=== PATIENT | female | born 1950 | race Caucasian/White ===

== ENCOUNTER 2018-10-10 00:09 | Emergency (ER) | payer SELFPAY ==
[2018-10-10] MEDS ORDERED: D50W 25 GM/50 ML SYRINGE IV ONE (00:32)
[2018-10-10] MEDS ORDERED: NA CHLORIDE 0.9% 1,000 ML ONE (00:44)
[2018-10-10] MEDS ORDERED: ONDANSETRON 4 MG/2 ML VIAL ONE (00:44)
[2018-10-10 00:48] LABS: Absolute Monocytes 0.5 K/uL (0.1-1.3); Basophils % 0.5 % (0-1.3); Eosinophils % 0.2 % (0-4.4); Hematocrit 42.1 % (36.0-45.0); Lymphocytes % 9.3 % (15.3-44.8); MCH 38.5 pg (27.0-35.0); MCV 112.2 fL (80-100); Monocytes % 5.1 % (3.3-12.3); RBC Red Blood Cell Count 3.75 M/uL (3.86-4.86)
[2018-10-10 01:19] LABS: ALT/SGPT 56 U/L (12-78); AST/SGOT 79 U/L (15-37); Albumin 3.9 g/dL (3.4-5.0); Alkaline Phosphatase 80 U/L (45-117); BUN Blood Urea Nitrogen 13 mg/dL (7-18); Bilirubin Direct 0.2 mg/dL (0-0.2); Bilirubin Total 0.8 mg/dL (0.2-1.0); Glucose Level 56 mg/dL (74-106); Lipase 130 U/L (73-393); Potassium 4.1 mmol/L (3.5-5.1); Protein, Total 8.1 g/dL (6.4-8.2); Sodium Level 132 mmol/L (136-145); Troponin I < 0.02 ng/mL (0.0-0.045)
[2018-10-10 01:20] LABS: Bicarbonate 13 mmol/L (21-32)
[2018-10-10 02:36] LABS: Urine Blood 1+ (NEG); Urine Glucose TRACE (NEG); Urine Protein NEGATIVE (NEG); Urine Specific Gravity 1.015 (1.005-1.030); Urine pH 5.5 (5.0-7.0)
[2018-10-10 03:21] LABS: Albumin 3.3 g/dL (3.4-5.0); Bilirubin Total 0.7 mg/dL (0.2-1.0); Potassium 4.2 mmol/L (3.5-5.1); Protein, Total 6.9 g/dL (6.4-8.2)
--- NOTE | 2018-10-10 03:36 | EDPHYS ---
Physician Documentation [facility] Name: Lena Correa Age: 68 yrs Sex: Female : 1950 Arrival Date: 10/10/2018 Time: 00:10 Bed 6 Private MD: ED Physician Lc Hodges HPI: 10/10 00:17 This 68 yrs old Female presents to ER via Unassigned with complaints of ma2 nausea vomiting. 00:17 The patient presents to the emergency department with nausea, vomiting. Onset: The ma2 symptoms/episode began/occurred gradually. Onset: The symptoms/episode began/occurred 1 week(s) ago. Associated signs and symptoms: Pertinent negatives: abdominal pain, anorexia, constipation, diarrhea, dysuria, fever, flatulence, GI bleeding, hematuria, nausea. Severity of symptoms: At their worst the symptoms were moderate in the emergency department the symptoms are unchanged. The patient has not experienced similar symptoms in the past. Historical: - Allergies: 00:40 PENICILLINS; lp1 00:40 Erythromycin; lp1 - Home Meds: 00:40 None [Active]; lp1 - PMHx: 00:40 None; lp1 - PSHx: 00:40 D \T\ C; lp1 - Immunization history:: Adult Immunizations up to date. - Social history:: Patient/guardian denies using alcohol, street drugs, The patient lives with family, Smoking status: Patient/guardian denies using tobacco. - Family history:: not pertinent. - Ebola Screening: : No symptoms or risks identified at this time. ROS: 00:17 Constitutional: Negative for fever, chills, and weight loss. ma2 00:17 Abdomen/GI: Positive for nausea, vomiting, Negative for diarrhea, constipation, abdominal cramps, abdominal distension, rectal bleeding, flatulence, acute changes. 00:17 All other systems are negative. Exam: 00:17 Constitutional: This is a well developed, well nourished patient who is awake, alert, ma2 and in no acute distress. Head/Face: Normocephalic, atraumatic. Chest/axilla: Normal chest wall appearance and motion. Nontender with no deformity. No lesions are appreciated. Cardiovascular: Regular rate and rhythm with a normal S1 and S2. No gallops, murmurs, or rubs. Normal PMI, no JVD. No pulse deficits. Respiratory: Lungs have equal breath sounds bilaterally, clear to auscultation and percussion. No rales, rhonchi or wheezes noted. No increased work of breathing, no retractions or nasal flaring. Abdomen/GI: Soft, non-tender, with normal bowel sounds. No distension or tympany. No guarding or rebound. No evidence of tenderness throughout. MS/ Extremity: Pulses equal, no cyanosis. Neurovascular intact. Full, normal range of motion. Neuro: Awake and alert, GCS 15, oriented to person, place, time, and situation. Cranial nerves II-XII grossly intact. Motor strength 5/5 in all extremities. Sensory grossly intact. Cerebellar exam normal. Normal gait. Vital Signs: 00:00 BP 198 / 102; Pulse 86; Resp 18; Temp 99.1(O); Pulse Ox 100% on R/A; Weight 58.97 kg; lp1 Height 5 ft. 3 in. (160.02 cm); Pain 0/10; 00:20 BP 176 / 84; Pulse 90; Resp 22; Pulse Ox 97% on R/A; lp1 01:30 BP 172 / 82; Pulse 82; Resp 22; Pulse Ox 96% on R/A; bb 02:32 BP 166 / 80; Pulse 79; Resp 16 S; Pulse Ox 98% on R/A; bb 03:23 BP 154 / 77; Pulse 77; Resp 15 S; Pulse Ox 99% ; bb 00:00 Body Mass Index 23.03 (58.97 kg, 160.02 cm) lp1 MDM: 00:11 Patient medically screened. ma2 00:17 Differential diagnosis: gastritis, pancreatitis, viral gastroenteritis, gastroenteritis.ma2 03:33 Data reviewed: vital signs, nurses notes, lab test result(s). Counseling: I had a ma2 detailed discussion with the patient and/or guardian regarding: the historical points, exam findings, and any diagnostic results supporting the discharge/admit diagnosis, the presence of at least one elevated blood pressure reading (>120/80) during this emergency department visit, the need for outpatient follow up. Response to treatment: the patient's symptoms have resolved after treatment. ED course: patient had elevated anion gap, however all her symptoms resolved vs wnl and want to go home, she will return to the er if she has any new symptoms.. and will f/u with pcp in 1 day . 10/10 00:17 Order name: Basic Metabolic Panel; Complete Time: : ma2 10/10 00:17 Order name: CBC with Diff; Complete Time: ma2 10/10 00:17 Order name: Hepatic Function; Complete Time: : ma2 10/10 00:17 Order name: Lipase; Complete Time: : ma2 10/10 00:17 Order name: Troponin I; Complete Time: : ma2 10/10 00:17 Order name: IV Saline Lock; Complete Time: 00:46 ma2 10/10 00:17 Order name: Labs collected and sent; Complete Time: 00:46 ma2 10/10 00:17 Order name: Chest Single View XRAY sd2 10/10 01:44 Order name: CMP; Complete Time: 03:32 ma2 10/10 02:30 Order name: Urine Dipstick--Ancillary (enter results); Complete Time: 02:46 [facility] 10/10 00:17 Order name: Urine Dipstick-Ancillary (obtain specimen); Complete Time: 02:34 ma2 Administered Medications: 00:25 Drug: D50W 50 ml Route: IVP; Site: right forearm; lp1 02:34 Follow up: Response: Blood sugar is elevated bb 00:44 Drug: NS 0.9% 1000 ml Route: IV; Rate: 1 bolus; Site: right forearm; bb 01:43 Follow up: IV Status: Completed infusion; IV Intake: 1000ml bb 00:45 Drug: Zofran 4 mg Route: IVP; Site: right forearm; bb 02:34 Follow up: Response: No adverse reaction bb Point of Care Testing: Blood Glucose: 00:19 Blood Glucose: 49 mg/dL; lp1 01:08 Blood Glucose: 171 mg/dL; lp1 Ranges: Critical Glucose Levels:Adult <50 mg/dl or >400 mg/dl <40 mg/dl or >180 mg/dl Disposition: 10/10/18 03:35 Discharged to Home. Impression: Vomiting, unspecified. - Condition is Stable. - Discharge Instructions: Nausea and Vomiting, Adult. - Prescriptions for Zofran 4 mg Oral Tablet - take 1 tablet by ORAL route every 12 hours As needed; 6 tablet. - Medication Reconciliation Form, Thank You Letter, Antibiotic Education, Prescription Opioid Use form. - Follow up: Private Physician; When: Tomorrow; Reason: Continuance of care. Signatures: Dispatcher [employer] Deborah Acosta RN RN bb Amina Ulloa RN RN lp1 Lc Hodges MD MD ma2 Corrections: (The following items were deleted from the chart) 01:21 00:18 Creatinine for Radiology+C.LAB.BRZ ordered. [facility] EDAL 03:49 03:35 10/10/2018 03:35 Discharged to Home. Impression: Vomiting, unspecified. Condition bb is Stable. Forms are Medication Reconciliation Form, Thank You Letter, Antibiotic Education, Prescription Opioid Use. Follow up: Private Physician; When: Tomorrow; Reason: Continuance of care. ma2
--- NOTE | 2018-10-10 03:36 | ER ---
Nurse's Notes [facility] Name: Lena Correa Age: 68 yrs Sex: Female : 1950 Arrival Date: 10/10/2018 Time: 00:10 Bed 6 Private MD: Diagnosis: Vomiting, unspecified Presentation: 10/10 00:00 Presenting complaint: EMS states: Nausea x 1 week, vomited x2 today; complaint of lp1 feeling generalized weakness; Denies any fever, diarrhea, pain. Transition of care: patient was not received from another setting of care. Onset of symptoms was October 10, 2018. Risk Assessment: Do you want to hurt yourself or someone else? Patient reports no desire to harm self or others. Initial Sepsis Screen: Does the patient meet any 2 criteria? No. Patient's initial sepsis screen is negative. Does the patient have a suspected source of infection? No. Patient's initial sepsis screen is negative. Care prior to arrival: Medication(s) given: Phenergan, 25 mg, IV initiated. 20 GA, in the right forearm, Glucose check: 60. 00:00 Acuity: EDWIN 3 lp1 00:00 Method Of Arrival: EMS: [facility] lp1 Historical: - Allergies: 00:40 PENICILLINS; lp1 00:40 Erythromycin; lp1 - Home Meds: 00:40 None [Active]; lp1 - PMHx: 00:40 None; lp1 - PSHx: 00:40 D \T\ C; lp1 - Immunization history:: Adult Immunizations up to date. - Social history:: Patient/guardian denies using alcohol, street drugs, The patient lives with family, Smoking status: Patient/guardian denies using tobacco. - Family history:: not pertinent. - Ebola Screening: : No symptoms or risks identified at this time. Screenin:44 Abuse screen: Denies threats or abuse. Denies injuries from another. Nutritional lp1 screening: No deficits noted. Tuberculosis screening: No symptoms or risk factors identified. Fall Risk None identified. Assessment: 00:15 General: Appears uncomfortable, Behavior is appropriate for age. Pain: Denies pain. lp1 Neuro: Level of Consciousness is awake, alert, obeys commands, Oriented to person, place, time, situation. Cardiovascular: Patient's skin is warm and dry. Respiratory: Respiratory effort is even, unlabored. GI: Abdomen is non-distended, Bowel sounds present X 4 quads. Reports nausea, vomiting, Patient currently denies constipation, diarrhea. : Denies burning with urination. EENT: No signs and/or symptoms were reported regarding the EENT system. Derm: Skin is intact, Skin is dry, Skin is pale. Musculoskeletal: Circulation, motion, and sensation intact. 01:30 Reassessment: Patient and/or family updated on plan of care and expected duration. Pain bb level reassessed. Patient is alert, oriented x 3, equal unlabored respirations, skin warm/dry/pink. pt is resting quietly states she is feeling better awaiting diagnostic results. 02:31 Reassessment: pt assisted to the bathroom via wheelchair urine sample obtained. bb 03:23 Reassessment: Patient and/or family updated on plan of care and expected duration. Pain bb level reassessed. Patient is alert, oriented x 3, equal unlabored respirations, skin warm/dry/pink. pt resting quietly, awaiting repeat lab results. 03:46 Reassessment: Patient and/or family updated on plan of care and expected duration. Pain bb level reassessed. Patient is alert, oriented x 3, equal unlabored respirations, skin warm/dry/pink. pt states she is feeling better verbalized understanding of and agrees to plan of care discharge instructions given public transportation called per pt for transportation home. Vital Signs: 00:00 BP 198 / 102; Pulse 86; Resp 18; Temp 99.1(O); Pulse Ox 100% on R/A; Weight 58.97 kg; lp1 Height 5 ft. 3 in. (160.02 cm); Pain 0/10; 00:20 BP 176 / 84; Pulse 90; Resp 22; Pulse Ox 97% on R/A; lp1 01:30 BP 172 / 82; Pulse 82; Resp 22; Pulse Ox 96% on R/A; bb 02:32 BP 166 / 80; Pulse 79; Resp 16 S; Pulse Ox 98% on R/A; bb 03:23 BP 154 / 77; Pulse 77; Resp 15 S; Pulse Ox 99% ; bb 00:00 Body Mass Index 23.03 (58.97 kg, 160.02 cm) lp1 ED Course: 00:01 Maintain EMS IV. Dressing intact. Good blood return noted. Site clean \T\ dry. Gauge \T\ bb site: 20 g R FA. 00:10 Patient arrived in ED. al2 00:11 Lc Hodges MD is Attending Physician. ma2 00:30 Initial lab(s) drawn, by ED staff, sent to lab. bb 00:31 Amina Ulloa, WILLIE is Primary Nurse. lp1 00:34 X-ray completed. Portable x-ray completed in exam room. Patient tolerated procedure sg4 well. 00:35 Triage completed. lp1 00:38 Chest Single View XRAY In Process Unspecified. EDMS 00:43 Arm band placed on right wrist. lp1 00:44 Patient has correct armband on for positive identification. Bed in low position. Call lp1 light in reach. health consultant on. Pulse ox on. NIBP on. 02:35 Repeat lab(s) drawn. by ED staff, sent to lab. Urine collected: clean catch specimen. bb 02:41 No provider procedures requiring assistance completed. lp1 03:48 IV discontinued, intact, bleeding controlled, No redness/swelling at site. Pressure bb dressing applied. Administered Medications: 00:25 Drug: D50W 50 ml Route: IVP; Site: right forearm; lp1 02:34 Follow up: Response: Blood sugar is elevated bb 00:44 Drug: NS 0.9% 1000 ml Route: IV; Rate: 1 bolus; Site: right forearm; bb 01:43 Follow up: IV Status: Completed infusion; IV Intake: 1000ml bb 00:45 Drug: Zofran 4 mg Route: IVP; Site: right forearm; bb 02:34 Follow up: Response: No adverse reaction bb Point of Care Testing: Blood Glucose: 00:19 Blood Glucose: 49 mg/dL; lp1 01:08 Blood Glucose: 171 mg/dL; lp1 Ranges: Intake: 01:43 IV: 1000ml; Total: 1000ml. bb Outcome: 03:35 Discharge ordered by . ma2 03:47 Discharged to home ambulatory, via public transportation bb 03:47 Condition: stable 03:47 Instructed on discharge instructions, follow up and referral plans. medication usage, Demonstrated understanding of instructions, follow-up care, medications, Prescriptions given X 1. 03:49 Patient left the ED. bb Signatures: Dispatcher [facility] Deborah Melgar RN RN Amina Ramos RN RN lp1 Yolanda Mina al2 Lc Hodges MD MD ma2 Kailee Levin 4 Corrections: (The following items were deleted from the chart) 00:33 Presenting complaint: EMS states: Nausea x 1 week, vomited x2 today; complaint of lp1 feeling generalized weakness; Denies any fever, diarrhea, pain lp1 00:33 Transition of care: patient was not received from another setting of care. lp1 lp1 00:33 Onset of symptoms was October 10, 2018 lp1 lp1 00:33 Risk Assessment: Do you want to hurt yourself or someone else? Patient reports no lp1 desire to harm self or others. lp1 00:33 Initial Sepsis Screen: Does the patient meet any 2 criteria? No. Patient's lp1 initial sepsis screen is negative. Does the patient have a suspected source of infection? No. Patient's initial sepsis screen is negative. lp1 00:33 Care prior to arrival: Medication(s) given: Phenergan, 25 mg, IV initiated. 20 lp1 GA, in the right forearm, Glucose check: 60 lp1 00:33 Method Of Arrival: EMS: [facility] 1 lp1 00:33 Acuity: EDWIN 3 lp1 lp1 02:31 01:30 Reassessment: pt assisted to the bathroom via wheelchair urine sample obtained gurvinder hollins
--- NOTE | 2018-10-10 07:11 | RAD REPORT ---
EXAM DESCRIPTION: [place] Single View10/10/2018 12:39 am CLINICAL HISTORY: cough COMPARISON: none FINDINGS: The lungs appear clear of acute infiltrate. The heart is normal size IMPRESSION: No acute abnormalities displayed
== END 2018-10-10 03:49 | disposition home or self-care (01) ==
LOC: ER 00:09
DX: R11.10 Vomiting, unspecified (principal); Z88.0 Allergy status to penicillin; Z88.3 Allergy status to other anti-infective agents
CPT/HCPCS: 36415; 71045; 80048; 80053; 80076; 81003; 82962; 83690; 84484; 85025; 96361; 96374; 96375; 99284; J2405; J7030